=== PATIENT | female | born 1995 | race Hispanic/Latino ===

== ENCOUNTER 2016-09-29 07:36 | Inpatient (IN) | payer OTHER ==
[~2016-09-29] VITALS: Ht 162.6 cm; Wt 81.6 kg
[~2016-09-29 07:36] MED LIST: AMOXIL500 MG PO; BACTRIM DS 8001 TAB PO; BENTYL20 MG PO; CLINDAMYCIN300 MG PO; FLEXERIL10 MG PO; FLOMAX(MONOGRA0.4 MG PO; KETOCONAZOLE 2%30 GM TOP; MEDROL DOSEPAK1 PAC PO; MIRENA52 MG; NAPROXEN500 M2 PO; OXYCODONE5 M1 PO; PERCOCET 325 MG1 TA2 PO; SEROQUEL XR300 MG; TESSALON PERLE100 MG PO; TORADOL10 MG PO; ZITHROMAX Z-PA250 M1 PO; ZOFRAN ODT4 M1 PO; ZOFRAN4 M1 PO; ZOFRAN4 M1 SL
[2016-09-29 08:25] VITALS: BP 134/83
[2016-09-29 08:53] LABS: ABSOLUTE BASOPHIL COUNT 0 /CUMM (0.0-0.2); ABSOLUTE EOSINOPHIL COUNT 0 /CUMM (0.0-0.7); ABSOLUTE GRANULOCYTE CT 7.6 /CUMM (1.4-6.5); ABSOLUTE LYMPH COUNT 2.8 /CUMM (1.2-3.4); ABSOLUTE MONOCYTE COUNT 0.8 /CUMM (0.10-0.60); BASOPHIL % 0.3 % (0.0-2.0); EOSINOPHIL % 0.3 % (0-5); GRANULOCYTE % 67.5 % (42.2-75.2); HEMATOCRIT 33.1 % (37-47); MEAN CORPUSCULAR HGB 27.9 PG (27.0-31.0); MEAN CORPUSCULAR HGB CONC 33.7 G/DL (33.0-37.0); MEAN CORPUSCULAR VOLUME 82.8 FL (81.0-99.0); MEAN PLATELET VOLUME 7.8 FL (7.4-10.4); PLATELET COUNT 231 /CUMM (130-400); RBC DISTRIBUTION WIDTH 13.8 % (11.5-14.5); RED BLOOD CELL CT 3.99 /CUMM (4.20-5.40); WHITE BLOOD CELL COUNT 11.3 /CUMM (4.8-10.8)
--- NOTE | 2016-09-29 09:37 | History & Physical ---
General Information and HPI MD Statement: I have seen and personally examined PATRICIA MURILLO and documented this H&P. The patient is a 21 year old female at [36] weeks and 2 days gestation who presented with a chief complaint of labor. Source of Information: patient Exam Limitations: no limitations History of Present Illness: 21-year-old 3 para 0111 who presents at 36 weeks and 2 days in active labor. She is a previous history of labor at 27 weeks but at 35 weeks and 5 days. Upon arrival she was found to be 4-5 cm dilated. History significant for depression at age 14 she is not on any medication. History of kidney stone 2015. 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 Cardiovascular: Reports: no symptoms. Respiratory: Reports: no symptoms. GI: Reports: no symptoms. Genitourinary: Reports: no symptoms. Neurological/Psychological: Reports: no symptoms. All Other Systems: Reviewed and Negative Exam & Diagnostic Data Last 24 Hrs of Vital Signs/I&O Vital Signs Date Time Temp Pulse Resp B/P B/P Pulse O2 O2 Flow FiO2 Mean Ox Delivery Rate 09/29 0825 134/83 Intake & Output 09/29 1600 09/29 0800 09/29 0000 Intake Total Output Total Balance Patient 180 lb Weight Obstetric Exam Wgt Gained During : 30 Pelvimetry: Proven to 5 lbs. 5 oz. Dilation (cm): 7 Effacement (%): 80 Station: -1 Membranes: AROM Fluid: clear Fundal Height (cm): 36 Multiple Gestation? No Contractions: Every 3-5 minutes Infant #1 - FHR Baseline: 130 Category: 1 Estimated Weight: 5 1/2 pounds Presentation: Vertex by sutures Patient for Induction? No Physical Exam General Appearance Alert, Oriented X3, Cooperative, No Acute Distress Cardiovascular Regular Rate, Normal S1, Normal S2 Lungs Clear to Auscultation, Normal Air Movement Abdomen Soft, No Tenderness, No Hepatospenomegaly, No Masses, gravid Reproductive (FEMALE) Normal female genitalia Labs Blood Type & Rh: A+ Antibody Screen: Negative Hct/Hgb & Platelets #1: 12.6 39.3 242 Hct/Hgb & Platelets #2: 11.2 36.5 191 Rubella: Immunity VDRL #1: Negative VDRL #2: Negative HbsAg: Negative HIV #1: Negative HIV #2 Negative 1 Hr P Group B Strep: Negative Initial Ultrasound: 10 weeks and 4 days Anatomy Ultrasound: 06/13/2016 normal growth and anatomy, posterior placenta Ultrasound for EFW: 30th percentile, 5 lbs. 12 oz., Genetic Testing: Negative first trimester screen, negative maternity 21, normal hemoglobin electrophoresis, Last 24 Hrs of Labs/Samuel: Laboratory Tests 09/29/16 0828: CBC w Diff NO MAN DIFF REQ, RBC 3.99 L, MCV 82.8, MCH 27.9, RDW 13.8, MPV 7.8, Gran % 67.5, Lymphocytes % 24.7, Monocytes % 7.2, Eosinophils % 0.3, Basophils % 0.3, Absolute Granulocytes 7.6 H, Absolute Lymphocytes 2.8, Absolute Monocytes 0.8 H, Absolute Eosinophils 0, Absolute Basophils 0, PUBS MCHC 33.7, Urinalysis LIGHT H, Urine Color YEL, Urine Clarity HAZY H, Urine pH 6.5, Ur Specific [place] 1.020, Urine Protein NEG, Urine Ketones NEG, Urine Nitrite NEG, Urine Bilirubin NEG, Urine Urobilinogen 0.2, Ur Leukocyte Esterase MOD H, Ur Microscopic SEDIMENT EXAMINED, Urine RBC 25-50 H, Urine WBC 10-15 H, Ur Epithelial Cells MANY H, Urine Bacteria MANY H, Urine Mucus FEW, Urine Hemoglobin LARGE H, Urine Glucose NEG Assessment/Plan Assessment/Plan: 21-year-old 3 para 0111 who presents in active labor at 36 weeks and 2 days. She'll evaluation she was 5 cm at the time of admission 1 reevaluated after epidural placement she is found to be 7 cm. Artificial rupture of membranes was performed and clear fluid was noted. heart rate tracing is reassuring. I anticipate vaginal delivery. Plan active management of labor. As Ranked By This Provider Problem List: 1. Core Measures/Miscellaneous Venous Thromboembolism VTE Risk Factors: / VTE Contraindications: No Contraindications VTE Diagnosis: No Beta Boris Is Beta Boris a Home Med? No Antibiotics Is Patient on Antibiotics? No Attending MD Review Statement Attending Statement Attending MD Statement: discuss w/resident/PA/COLOR MAKER DYER, discussed with family, discussed w/nursing
--- NOTE | 2016-09-29 12:31 | Labor & Delivery Summary ---
Delivery Summary Vaginal Delivery: Vaginal: vertex Episiotomy/Lacerations: Episiotomy/Lacerations: right periurethral Placenta: Placenta: spontanteous, normal, 3 vessel, sent for path Apgars - 1 Min: 9 Apgars - 5 Min: 9 Additional Comments: Pt felt desire to push. anterior lip noted. Lip reduced with pushing. Severe variables with vita to 60 bpm noted with pushing. Vacuum applied at +5 station x 5-6 seconds. Head delivered atraumatically. shoulders and infant delivered without complication. dried and stimulated and bulb suctioned. Good cry noted. Cord clamped and cut after 30 seconds while on maternal abdomen. Cord gases sent. Repair performed Pt tolerated well. Placenta delivered with gentle traction. Fundus firm.
--- NOTE | 2016-09-30 09:07 | PN- OBGYN ---
Surgical Brief Attending Note Brief Attending Note: NO COMPLAINTS. DOING WELL. AMBULATING, VOIDING, TOLERATING PAIN AND PO. BOTTLE FEEDING. MOD LOCHIA. DECLINES CIRC. VSSAF FF@U EXT: NO CALF TENDERNESS OR EDEMA PPD1. DOING WELL. ROUTINE PP CARE.
[2016-09-30 09:08] LABS: ABSOLUTE BASOPHIL COUNT 0 /CUMM (0.0-0.2); ABSOLUTE EOSINOPHIL COUNT 0 /CUMM (0.0-0.7); ABSOLUTE GRANULOCYTE CT 6.9 /CUMM (1.4-6.5); ABSOLUTE LYMPH COUNT 3.3 /CUMM (1.2-3.4); ABSOLUTE MONOCYTE COUNT 0.9 /CUMM (0.10-0.60); BASOPHIL % 0.3 % (0.0-2.0); EOSINOPHIL % 0.4 % (0-5); MEAN CORPUSCULAR HGB 27.7 PG (27.0-31.0); MEAN CORPUSCULAR HGB CONC 33.1 G/DL (33.0-37.0); MEAN CORPUSCULAR VOLUME 83.6 FL (81.0-99.0); MEAN PLATELET VOLUME 7.9 FL (7.4-10.4); PLATELET COUNT 191 /CUMM (130-400); RBC DISTRIBUTION WIDTH 14.4 % (11.5-14.5); RED BLOOD CELL CT 3.94 /CUMM (4.20-5.40); WHITE BLOOD CELL COUNT 11.1 /CUMM (4.8-10.8)
[2016-09-30] MEDS ORDERED: IBUPROFEN800 M1 PO (09:13)
--- NOTE | 2016-10-01 10:49 | PN- OBGYN ---
Surgical Brief Attending Note Brief Attending Note: DOING WELL . NO COMPLAINTS. AMBULATING, VOIDING, TOLERATING PAIN AND PO. BOTTLE FEEDING, SMALL LOCHIA. FAILED CAR SEAT CHALLENGE AND WILL BE KEPT FOR FURTHE OBSERVATION VSSAF FF@U EXT: NO CALF TENDERNESS OR EDEMA. Laboratory Tests 09/30/16 0750: CBC w Diff NO MAN DIFF REQ, RBC 3.94 L, MCV 83.6, MCH 27.7, RDW 14.4, MPV 7.9, Gran % 62.0, Lymphocytes % 29.4, Monocytes % 7.9, Eosinophils % 0.4, Basophils % 0.3, Absolute Granulocytes 6.9 H, Absolute Lymphocytes 3.3, Absolute Monocytes 0.9 H, Absolute Eosinophils 0, Absolute Basophils 0, PUBS MCHC 33.1 09/29/16 0828: CBC w Diff NO MAN DIFF REQ, RBC 3.99 L, MCV 82.8, MCH 27.9, RDW 13.8, MPV 7.8, Gran % 67.5, Lymphocytes % 24.7, Monocytes % 7.2, Eosinophils % 0.3, Basophils % 0.3, Absolute Granulocytes 7.6 H, Absolute Lymphocytes 2.8, Absolute Monocytes 0.8 H, Absolute Eosinophils 0, Absolute Basophils 0, PUBS MCHC 33.7, Urinalysis LIGHT H, Urine Color YEL, Urine Clarity HAZY H, Urine pH 6.5, Ur Specific [place] 1.020, Urine Protein NEG, Urine Ketones NEG, Urine Nitrite NEG, Urine Bilirubin NEG, Urine Urobilinogen 0.2, Ur Leukocyte Esterase MOD H, Ur Microscopic SEDIMENT EXAMINED, Urine RBC 25-50 H, Urine WBC 10-15 H, Ur Epithelial Cells MANY H, Urine Bacteria MANY H, Urine Mucus FEW, Urine Hemoglobin LARGE H, Urine Glucose NEG A/P PPD 2. DOING WELL. DISCHARGE TO HOME. PRECAUTIONS ADVISED
== END 2016-10-01 14:20 | DRG 542 ==
LOC: CBCO 07:36 → GNO 08:06
PROVIDERS: ADMIT Obstetrics & Gynecology
PROC: 0TQDXZZ Repair Urethra, External Approach (ICD-10-PCS; principal; 2016-09-29)
PROC: 10E0XZZ Delivery of Products of Conception, External Approach (ICD-10-PCS; principal; 2016-09-29)
DX: O71.82 Other specified trauma to perineum and vulva (principal); O99.284 Endocrine, nutritional and metabolic diseases complicating childbirth; E03.9 Hypothyroidism, unspecified; Z3A.36 36 weeks gestation of pregnancy; Z37.0 Single live birth
CPT/HCPCS: GNOS; 36415; 81001; 88307; J1200; J2405; J7120

== ENCOUNTER 2017-08-27 23:52 | Observation (INO) | payer OTHER ==
[~2017-08-27 23:52] MED LIST changes: +IBUPROFEN800 M1 PO; +TRIAMCINOLONE A15 G1 TP; +VISTARIL50 M1 PO; +VITAFOL-ONE CA1 EACH PO; +ZOFRAN ODT4 M1 SL
--- NOTE | 2017-08-28 10:04 | PN- OBGYN ---
Surgical Brief Attending Note Brief Attending Note: resume care from 8AM 22yo, at 21 3/7wks, c/o fever , chill , nausea and vomitting since last night, sudden onset of symptoms, as per pt, she vomitted 6 times before she came to hospital, no diarrhea, denies sick contact. she felt some cramping pain last night, but no pain overnight and today. denies any VB or LOF. she had T 101 earlier am, received tylenol IV, now T 99,6, influenza test negative, she was put on Tamiflu for suspicious flu. pt c/o she felt much better now, will try to have PO intake. h/o PTD x 2 at 35 and 36wks. she is taking [place] IM weekly since 16 wks. pt is taking brekfast now, denies any nausea, no vomiting now, tolerate PO.denies any pain.VSS. FH 150, abdomen: soft, nontender.cervix 1cm/ 40%/-3 will d/c home, continue Tamiflu. f/u in office tomorrow for cervical length. precautions given to pt, she understand.
[2017-08-28 10:54] VITALS: BP 100/62
== END 2017-08-28 10:20 ==
LOC: CBCO 23:52 → GNO 08-28 03:11
DX: O47.02 False labor before 37 completed weeks of gestation, second trimester (principal); Z3A.21 21 weeks gestation of pregnancy
CPT/HCPCS: 96360; 96361; 96365; 96374; 96375; G0378; G0463; J0131; J7120

== ENCOUNTER 2017-10-06 21:30 | Emergency (ER) | payer OTHER ==
[~2017-10-06] VITALS: Ht 162.6 cm; Wt 90.3 kg
[2017-10-06 21:35] VITALS: BP 139/87
--- NOTE | 2017-10-06 21:50 | ED GI/GU/ABDOMINAL COMPLAINT ---
History of Present Illness General Chief Complaint: Nausea, Vomiting, Diarrhea Stated Complaint: +NVD, 27 WEEKS Source: patient Exam Limitations: no limitations Vital Signs & Intake/Output Vital Signs & Intake/Output Vital Signs Date Time Temp Pulse Resp B/P B/P Pulse O2 O2 Flow FiO2 Mean Ox Delivery Rate 10/06 2135 98.1 103 18 139/87 98 Room Air Allergies Coded Allergies: Penicillins (HIVES 12/27/15) Reconcile Medications Hydroxyzine Pamoate (Vistaril) 50 MG CAPSULE 1 CAP PO TID PRN ITCHING Pnv#26/Iron Poly/FA/Dha (Vitafol-One Capsule) 29 MG IRON-1 MG-200 MG CAPSULE 1 CAP PO DAILY PRE NATEL (Reported) Triamcinolone Acetonide 0.1 % CREAM..G. 1 MG TP BID RASH (Reported) Triage Note: PT FROM HOME C/O N/V. PT STATES SHE IS 27 WEEKS , FIRST 2 BABIES WERE AT 35, AND 36 WEEKS. PT STATES 30 MINS PRIOR SHE BEGAN VOMITING 3X EPISODES IN TOTAL AND LAST TIME THIS HAPPENED PT HAD CONTRACTIONS AT 21 WEEKS. PT STATES CONTRACTIONS BEGAN "A FEW MINS AGO" PER PT. PTS VSS. PTS OBGYN IS [facility], DUE DATE 01/05/18, LMP 03/24/17. PT IN NO DISTRESS AT THIS TIME. Triage Nurses Notes Reviewed? yes LMP (ages 10-50): date (27 WEEKS PREGNENT) ? Y Is pt currently ? No Onset: Abrupt Duration: hour(s): (1), constant, continues in ED Timing: single episode today Quality/Severity: cramping Severity Numbers: 6 Location: generalized abdomen Radiation: no radiation Activities at Onset: none Prior Abdominal Problems: similar symptoms Sexually Active: Yes Last Time You Were Sexual: less than 2 months ago Use of Protection: No No Modifying Factors: none Modifying Factors: Worsens With: vomiting. Associated Symptoms: abdominal pain, nausea/vomiting HPI: 22-year-old female currently about 27 weeks presents for evaluation of nausea vomiting and abdominal cramping. Patient states symptoms started about one hour before presentation. She states she vomited 3 times. Several minutes ago she developed diffuse abdominal cramping. She states it feels like contractions. She states that a similar episode happened about 6 weeks ago. She has a history of pre-term labor with her previous 2 pregnancies. She denies any vaginal bleeding or discharge. No chest pain shortness of breath fever or urinary symptoms. The abdominal cramping is located diffusely in the lower abdomen does not radiate. She is not taking any medicine for this rates the pain as a 6 or 7 out of 10. She feels like her contractions are coming every 5 minutes since first starting. (Darien Forman) Past History Travel History Traveled to [place] past 21 day No Medical History Any Pertinent Medical History? 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 No (Darien Forman) Review of Systems Review of Systems Constitutional: Reports: no symptoms. EENTM: Reports: no symptoms. Respiratory: Reports: no symptoms. Cardiovascular: Reports: no symptoms. GI: Reports: see HPI, abdominal pain, nausea, vomiting. Genitourinary: Reports: no symptoms. Musculoskeletal: Reports: no symptoms. Skin: Reports: no symptoms. Neurological/Psychological: Reports: no symptoms. Hematologic/Endocrine: Reports: no symptoms. Immunologic/Allergic: Reports: no symptoms. All Other Systems: Reviewed and Negative (Darien Forman) Physical Exam Physical Exam General Appearance: well developed/nourished, no apparent distress, alert, awake , anxious Head: atraumatic, normal appearance Eyes: Bilateral: normal appearance, EOMI. Ears, Nose, Throat, Mouth: hearing grossly normal Neck: normal inspection, supple, full range of motion Respiratory: no respiratory distress Gastrointestinal: GRAVID UTERUS Back: normal inspection, normal range of motion Extremities: normal range of motion Neurologic/Psych: no motor/sensory deficits, awake, alert, oriented x 3, normal gait Skin: intact, normal color, warm/dry Core Measures ACS in differential dx? No Sepsis Present: No Sepsis Focused Exam Completed? No (Darien Forman) Progress Differential Diagnosis: biliary colic, cholecystitis, gastritis, intrauterine , kidney stone, ovarian cyst, ovarian torsion, pancreatitis, PID/ cervicitis, peptic ulcer, PUD/GERD, threatened AB, UTI/pyelo Plan of Care: Patient seen and evaluated. She is 27 weeks reporting nausea vomiting and contractions every 5 minutes. She is mildly tachycardic. No vaginal bleeding. Patient will be transferred to the childbirth center for further evaluation and treatment. Case discussed with Dr. Edge he agrees. Initial ED EKG: none (Darien Forman) Departure Departure Disposition: STILL A PATIENT Condition: Stable Clinical Impression Primary Impression: Abdominal pain affecting Referrals: Patient Has No Primary Care Dr (PCP/Family) Departure Forms: Customer Survey General Discharge Information (Darien Forman) PA/CASE CHECKER Co-Sign Statement Statement: ED Attending supervision documentation- [] I saw and evaluated the patient. I have also reviewed all the pertinent lab results and diagnostic results. I agree with the findings and the plan of care as documented in the PA's/CASE CHECKER's documentation. [x] I have reviewed the ED Record and agree with the PA's/CASE CHECKER's documentation. [] Additions or exceptions (if any) to the PAs/CASE CHECKER's note and plan are summarized below: [] (Kely TORRES,Angelo Bueno)
== END 2017-10-06 22:10 ==
LOC: ERH 21:30
DX: O26.92 Pregnancy related conditions, unspecified, second trimester (principal); R10.84 Generalized abdominal pain

== ENCOUNTER 2017-12-19 20:02 | Inpatient (IN) | payer OTHER ==
[~2017-12-19] VITALS: Ht 162.6 cm; Wt 94.8 kg
--- NOTE | 2017-12-19 21:26 | History & Physical ---
General Information and HPI MD Statement: I have seen and personally examined PATRICIA MURILLO and documented this H&P. The patient is a 22 year old female at [37] weeks and [4] days gestation who presented with a chief complaint of [LOF]. Source of Information: patient Exam Limitations: no limitations History of Present Illness: 22yo, [id number], 37 4/7wks, c/o LOF for 1 hour, occasional ctxs, no VB, reports GFM. care started at9 wks, h/o 2 delivery, she received [place] iweekly injection till 36 wks .GBS negative Allergies/Medications Allergies: Coded Allergies: Penicillins (HIVES 12/27/15) Home Med list Hydroxyzine Pamoate (Vistaril) 50 MG CAPSULE 1 CAP PO TID PRN ITCHING Pnv#26/Iron Poly/FA/Dha (Vitafol-One Capsule) 29 MG IRON-1 MG-200 MG CAPSULE 1 CAP PO DAILY PRE NATEL (Reported) Triamcinolone Acetonide 0.1 % CREAM..G. 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 Last Menstrual Period: 03/24/2017 Estimated Delivery Date: 01/05/[address] maintenance crew worker History: labor, as noted at earlier she experienced labor 27 weeks however she did not deliver until 35 weeks and 5 days Past Pregnancies Past Pregnancies: Date of Delivery: 06/2009 Gestational Age: 35 5/7wks 36 2/7wks Weight: 5lb5oz 5lb6oz Type of Delivery: vaginal Medical History EENT: NONE Cardiovascular: NONE Respiratory: NONE Gastrointestinal: NONE Hepatic: NONE Renal: nephrolithiasis Musculoskeletal: NONE Psychiatric: anxiety, depression (no meds) Endocrine: hypothyroidism, reports hashimotos during her last but since then has been euthyroid. 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 EENTM: Reports: no symptoms. Cardiovascular: Reports: no symptoms. Respiratory: Reports: no symptoms. GI: Reports: no symptoms. Genitourinary: Reports: see HPI. Musculoskeletal: Reports: no symptoms. Skin: Reports: no symptoms. Neurological/Psychological: Reports: no symptoms. Hematologic/Endocrine: Reports: no symptoms. Immunologic/Allergic: Reports: no symptoms. All Other Systems: Reviewed and Negative Exam & Diagnostic Data Obstetric Exam Wgt Gained During : 30lb Pelvimetry: tested 5lb6oz Dilation (cm): 3 Effacement (%): 75 Station: -1 Membranes: SROM Fluid: clear Fundal Height (cm): 36 Multiple Gestation? No Contractions: occasional #1 - FHR Baseline: 150 Category: 1 Estimated Weight: 2700g Presentation: vertex Patient for Induction? No Physical Exam: VSS General: NAD Abdomen: gravid, soft, nontender Ext: DCT (-) Labs Blood Type & Rh: A positive Antibody Screen: negative Hct/Hgb & Platelets #1: 12.8/42.4%,[id number] Hct/Hgb & Platelets #2: 11.1/37%,[id number] Rubella: immune VDRL #1: negative VDRL #2: negative HbsAg: negative HIV #1: negative HIV #2 negative 1 Hr P Group B Strep: negative Initial Ultrasound: IUP at 9 wks Anatomy Ultrasound: nl Genetic Testing: nl NT Last 24 Hrs of Labs/Samuel: Laboratory Tests 12/19/172024: Membrane Rupture POSITIVE Assessment/Plan Assessment/Plan: 22yo, 37 4/7wks, SROM 1. admit pt, admision labs 2. will monitor closley, may consider pitocin augmentation if cxt is not regular 3. pain management as needed As Ranked By This Provider Problem List: 1. SROM (spontaneous rupture of membranes) Core Measures Venous Thromboembolism VTE Risk Factors / No Mechanical VTE Prophylaxis d/t LowRisk-No Interven Req'd No VTE Pharm Prophylaxis d/t LowRisk-No Interven Req'd Attending MD Review Statement Attending Statement Attending MD Statement: examined this patient, discussed w/nursing
[2017-12-19 21:50] LABS: ABSOLUTE BASOPHIL COUNT 0 /CUMM (0.0-0.2); ABSOLUTE EOSINOPHIL COUNT 0.1 /CUMM (0.0-0.7); ABSOLUTE GRANULOCYTE CT 6.1 /CUMM (1.4-6.5); ABSOLUTE LYMPH COUNT 3.1 /CUMM (1.2-3.4); ABSOLUTE MONOCYTE COUNT 0.7 /CUMM (0.10-0.60); BASOPHIL % 0.4 % (0.0-2.0); EOSINOPHIL % 0.7 % (0-5); GRANULOCYTE % 60.8 % (42.2-75.2); HEMATOCRIT 32.5 % (37-47); MEAN CORPUSCULAR HGB 24.9 PG (27.0-31.0); MEAN CORPUSCULAR HGB CONC 32.3 G/DL (33.0-37.0); MEAN CORPUSCULAR VOLUME 77.1 FL (81.0-99.0); MEAN PLATELET VOLUME 7.7 FL (7.4-10.4); PLATELET COUNT 283 /CUMM (130-400); RBC DISTRIBUTION WIDTH 15.5 % (11.5-14.5); RED BLOOD CELL CT 4.21 /CUMM (4.20-5.40)
--- NOTE | 2017-12-20 05:27 | PN- OBGYN ---
Surgical Brief Attending Note Brief Attending Note: pt is comfortable with epidural, no complaints. pitocin at 16 mU/min on TOCO: ctxs q 3min, FHR cat I cervix 4-5 cm/70%/-2, clear fluid will continue current management
--- NOTE | 2017-12-20 09:08 | PN- OBGYN ---
Surgical Brief Attending Note Brief Attending Note: pt comfortable w/ epidural afeb, v/ss fht 130s moderate variability +acc no dec toco q 2 - 4 pit@10mu sve 5/70/-2, arom [place], clr P2 37wks, srom on pit, gbs neg, and maternal status reassuring -cont pit -ansvd
--- NOTE | 2017-12-20 10:29 | PN- OBGYN ---
Surgical Brief Attending Note Brief Attending Note: pt evaluated due to recurrent mild variable decels. ctx q 3min. sve 7100/0 per RN. will cont current mgmt.
--- NOTE | 2017-12-20 11:28 | Labor & Delivery Summary ---
Delivery Summary Vaginal Delivery: Vaginal: spontaneous Episiotomy/Lacerations: Episiotomy/Lacerations: right periurethral Repair: 3-0 harika Anesthesia: epidural Placenta: Placenta: spontanteous, normal, 3 vessel Anesthesia: block Baby's Weight: 3100 gr Apgars - 1 Min: 8 Apgars - 5 Min: 9 Additional Comments: Pt FD / +1 and pushing w/ epidural. Controlled of live male, apg 8/9. Head del over intact perineum form ABBY. Mouth and nose bulb suctioned. Body delivered with compound hand without difficulty. Baby to mom's chest. Cord clamped and cut. Cord gases sent. 3vc plac del spont intact. Fundus contracted. Periurethral lac repaired usual fashion 2-0 harika. Good hemostasis. Pt jacob well. EBL 300cc.
--- NOTE | 2017-12-20 18:51 | PN- OBGYN ---
Surgical Brief Attending Note Brief Attending Note: Spoke w/ pt re: PPBTL. Discussed R/B/O/A w/ pt and emphasized increased risk of regret when under 25yo. All BC options discussed extensively and questions answered. Will cancel PPBTL and discharge pt mary w/ Depo. Will give strong consideration to LARC. To discuss options again at 2 wks visit.
[2017-12-21 08:14] LABS: ABSOLUTE BASOPHIL COUNT 0 /CUMM (0.0-0.2); ABSOLUTE EOSINOPHIL COUNT 0.1 /CUMM (0.0-0.7); ABSOLUTE GRANULOCYTE CT 6.1 /CUMM (1.4-6.5); ABSOLUTE MONOCYTE COUNT 0.8 /CUMM (0.10-0.60); BASOPHIL % 0.4 % (0.0-2.0); EOSINOPHIL % 1.1 % (0-5); GRANULOCYTE % 60.6 % (42.2-75.2); HEMATOCRIT 28.6 % (37-47); MEAN CORPUSCULAR HGB 25.1 PG (27.0-31.0); MEAN CORPUSCULAR HGB CONC 32.7 G/DL (33.0-37.0); MEAN CORPUSCULAR VOLUME 76.8 FL (81.0-99.0); MEAN PLATELET VOLUME 7.9 FL (7.4-10.4); PLATELET COUNT 218 /CUMM (130-400); RBC DISTRIBUTION WIDTH 15.5 % (11.5-14.5); RED BLOOD CELL CT 3.73 /CUMM (4.20-5.40); WHITE BLOOD CELL COUNT 10.1 /CUMM (4.8-10.8)
--- NOTE | 2017-12-21 11:38 | PN- OBGYN ---
Surgical Brief Attending Note Brief Attending Note: PPD1 Pt. found sitting up in bed, feeding her baby a bottle. She's happy. Lochia mild rubra. Intermittent strong cramps she "didn't expect ", Voiding and ambulating without difficulty, tolerating all POs. afebrile, VS normal Breasts - not engorged Abd - soft, NT, no CVAT Fundus - firm, NT Perineum - intact, dry Extr - benign A: doing well chronic mild anemia requests contraception/permanent sterilization P: con't routine care restart PNVs and iron tablets daily after 1st BM, when she gets home Patient continues to request permanent sterilization. I documented our conversation about this in her office chart during a visit about 3 weeks ago. Discussed her young age, unmarried status, the frequency I encounter regrets, the permanence of the procedure, and how unpredictable the future can be. Despite those points, she is adamant about having a tubal ligation. She lives with a partner and 2 or 3 of his kids, making hers a large family already. I understand her seriousness and her committment to this, and I believe she has given the subject much thought, together with her family, who support her decision. As I had agreed to perform the procedure this morning before it was cancelled, I will make arrangements for her to have a laparoscopic tubal sterilization 2-3 months , when the uterus shrinks down. I explained that type of tubal has a lower risk of failure. She will get a Depo shot on discharge, was instructed NO SEX FOR 6 WEEKS due to her state, and I will make plans for her LTS at her 6-week check. She is satisfied with this plan.
--- NOTE | 2017-12-22 10:25 | PN- OBGYN ---
Surgical Brief Attending Note Brief Attending Note: PPD 2 Ready to go home. Feels well. Denies pain. Scant lochia rubra. +void. Ambulating. Voiding. Bottlefeeding. afebrile, VS normal. Abd - soft, NT Fundus - firm, NT Perineum - dry, intact Extr - benign Labs, vitals, I&Os reviewed A: stable P: home today, instructions reviewed declines circumcision for to office in 6w for check
== END 2017-12-22 11:03 | DRG 560 ==
LOC: CBCO 20:02 → GNO 21:01
PROVIDERS: Obstetrics & Gynecology
PROC: 10E0XZZ Delivery of Products of Conception, External Approach (ICD-10-PCS; principal; 2017-12-20)
PROC: 0UQMXZZ Repair Vulva, External Approach (ICD-10-PCS; principal; 2017-12-20)
DX: O71.82 Other specified trauma to perineum and vulva (principal); Z3A.37 37 weeks gestation of pregnancy; Z37.0 Single live birth; Z88.0 Allergy status to penicillin
CPT/HCPCS: GNOS; 36415; 81001; 84112; 87086; G0463; J1050; J2405; J7120